=== PATIENT | male | born 1960 | race Caucasian/White ===

== ENCOUNTER 2019-01-05 12:25 | Emergency (ER) | payer MEDICARE ==
[~2019-01-05] VITALS: Ht 188 cm; Wt 91.4 kg
--- NOTE | 2019-01-05 13:40 | NUR ---
[employer] APPLICATION[employer] SCIENTIST: PT TO ROOM FROM LOBBY. AMBULATORY
[2019-01-05 13:43] LABS: BASOPHILS # (AUTO) 0.03 x10^3/uL (0-0.1); BASOPHILS % (AUTO) 1 % (0-1); EOSINOPHILS # (AUTO) 0.09 x10^3/uL (0-0.4); EOSINOPHILS % (AUTO) 2 % (1-7); LYMPHOCYTES # (AUTO) 1.95 x10^3/uL (1-3.4); LYMPHOCYTES % (AUTO) 36 % (22-44); MD NO; MEAN CORPUSCULAR HEMOGLOBIN 31.2 pg (27.5-34.5); MEAN CORPUSCULAR HGB CONC 33.2 g/dL (33.2-36.2); MEAN CORPUSCULAR VOLUME 94.1 fL (81-97); MEAN PLATELET VOLUME 8.2 fL (7.4-10.4); MONOCYTES # (AUTO) 0.54 x10^3/uL (0.2-0.8); MONOCYTES % (AUTO) 10 % (2-9); NEUTROPHILS % (AUTO) 52 % (42-75); PLATELET COUNT 237 x10^3/uL (130-400); RED BLOOD COUNT 5.24 x10^6/uL (4.38-5.82); RED CELL DISTRIBUTION WIDTH 13.9 % (9.4-14.8)
[2019-01-05 13:55] LABS: ALBUMIN 4.5 g/dL (3.4-5.0); ANION GAP 5 mmol/L (5-15); CALCIUM 8.8 mg/dL (8.5-10.1); CHLORIDE 104 mmol/L (98-107); CREATININE 1.35 mg/dL (0.7-1.3)
[2019-01-05 13:56] LABS: MICROSCOPIC NOT IND
[2019-01-05 13:57] LABS: CULTURE INDICATED? NO
[2019-01-05] MEDS ORDERED: TAMS-11 PO (13:59)
[2019-01-05] MEDS ORDERED: CHOL200059 PO (13:59)
--- NOTE | 2019-01-05 14:00 | NUR ---
assumed care of pt. pt ambulatory to ed from home accomp by . c/o urinary sx x6 days: difficulty urinating, frequency, dribbling, no blood in urine. feels like cannot empty bladder fully. moeller when urinating. denies fevers/chills/nausea/vomiting. takes flomax for bph but not regularly. 10/10 pain lower abdomen worse when palpating. bs x4, hyperactive. diarrhea 4 days ago, took imodiuim, last bm 2 days ago. labs in triage, pending. vss. A&Ox4 GCS 15. appears anxious. call [facility] in reach fall precs.
[2019-01-05] MEDS ORDERED: KETOROLAC 30 MG/1 ML ONE (14:15)
[2019-01-05] MEDS ORDERED: ONDANSETRON ODT 4 MG ONE (14:15)
[2019-01-05] MEDS ORDERED: OXYcodone/APAP 5/325MG TABLET ONE (14:27)
[2019-01-05] MEDS ORDERED: OXYcodone/APAP 5/325MG TABLET PO ONE (14:30)
[2019-01-05] MEDS ORDERED: KETOROLAC 30 MG/1 ML IM ONE (14:30)
[2019-01-05] MEDS ORDERED: ONDANSETRON ODT 4 MG PO ONE (14:30)
--- NOTE | 2019-01-05 14:30 | NUR ---
Gege PADILLA at bedside for eval. plan for CT, bladder scan, pain meds. family at bedside. pt aware of POC.
--- NOTE | 2019-01-05 14:38 | NUR ---
Pt bladder scanned per PA request, bladder scan >200 ml.
--- NOTE | 2019-01-05 14:42 | NUR ---
Pt to CT.
--- NOTE | 2019-01-05 15:26 | NUR ---
Pt back from CT. Pt asking for flomax and information. Provider Gege notified. CT shows enlarged prostate.
--- NOTE | 2019-01-05 15:35 | NUR ---
PA TO BEDSIDE TO UPDATE PT ON RESULTS AND POC
--- NOTE | 2019-01-05 15:51 | NUR ---
Pt pacing in room. given ct results. sts pain is slightly better after meds, 9/10 pain. mother in room. plan for dc w/ f/u with urology.
[2019-01-05 16:35] VITALS: BP 143/89
== END 2019-01-05 16:54 | disposition home or self-care (01) ==
LOC: ED 16:22
DX: N40.0 Benign prostatic hyperplasia without lower urinary tract symptoms (principal)
CPT/HCPCS: 36415; 74176; 80048; 81003; 82040; 85025; 96372; 99284; J1885; Q0162

== ENCOUNTER → 2020-04-04 | Outpatient (CLI) | payer MEDICARE ==
[~2020-04-04] MED LIST: CHOL200059 PO; TAMS-11 PO
== END | disposition home or self-care (01) ==
LOC: LAB 11:46
PROVIDERS: ATTEND Urology
DX: R97.20 Elevated prostate specific antigen [PSA] (principal)
CPT/HCPCS: 36415; 84153; G0103

== ENCOUNTER → 2020-05-31 | Outpatient (CLI) | payer MEDICARE | END | disposition home or self-care (01) | LOC: CVU 15:53 | PROVIDERS: ATTEND Internal Medicine Cardiovascular Disease | DX: R07.89 Other chest pain (principal) | CPT/HCPCS: 93306 ==